=== PATIENT | male | born 1955 | race Caucasian/White ===

== ENCOUNTER 2016-12-03 14:36 | Inpatient (IN) | payer OTHER ==
[2016-12-03] VITALS (8 sets, daily range): BP systolic 140–210; BP diastolic 90–112; PULSE 80–97; RESP 16; TEMP 97.7–98.7; O2SAT 96–99
[~2016-12-03] VITALS: Ht 177.8 cm; Wt 81.0 kg
[~2016-12-03 14:36] MED LIST: CYMB60CA PO; LORTA10 PO; PERC5TAB12 PO; RIVA15 PO; VENL37.5
[2016-12-03] MEDS ORDERED: CYMB30CA PO (14:55)
[2016-12-03] MEDS ORDERED: VENL37.5 PO (14:55)
[2016-12-03] MEDS ORDERED: ASPIRIN 81 MG CHEW TAB PO ONE (15:00)
[2016-12-03] MEDS ORDERED: HEPARIN-D5W 25,000 U/250 ML 250 ML IV PRN (15:00)
[2016-12-03] MEDS ORDERED: ATORVASTATIN 80 MG TAB PO ONE (15:00)
[2016-12-03] MEDS ORDERED: HEPARIN-NS/PF INJ 1,000 ML ONE (15:14)
[2016-12-03 15:21] LABS: I-STAT POTASSIUM 4.4 MMOL/L (3.5-4.9); I-STAT SODIUM 140 MMOL/L (138-146)
[2016-12-03] MEDS ORDERED: IOHEXOL 350 MG/ML 100 ML BTL (for Cath Lab) OTHER ONE (15:21)
--- NOTE | 2016-12-03 15:22 | PD ---
HPI Chief Complaint: Chest Pain Time Seen by Provider: 14:56 Travel History International Travel<30 days: No Contact w/Intl Traveler<30days: No Traveled to known affect area: No History of Present Illness HPI Patient is a 61-year-old male who presents to emergency room with complaints of chest pain. Patient reports that he has only history of alcoholism, reports that he drinks about 2-3 drinks per day, he did have a drink this morning. Patient reports that for the past 3 days, he's been having chest pain. Patient reports that chest pain is located to his sternum, reports that it radiates to his left chest and down both arms. Patient reports that pain feels "pressure" to his chest with associated nausea and vomiting. Patient denies any shortness breath at this time. Reports that chest pain has been ongoing for the past 3 days, reports that has been intermittent in nature and lasts hours at a time. Patient reports that symptoms began a few hours prior to arrival to the emergency room today. Patient denies history of hypertension or hyperlipidemia , denies smoking history. Reports strong drinking history. PFSH Past Medical History Arthritis: No Autoimmune Disease: No Anxiety: Yes Depression: Yes Cancer: No Cardiovascular Problems: No Chemotherapy: Yes Cerebrovascular Accident: No Diabetes: No Diminished Hearing: No Endocrine: No Gastrointestinal Disorders: No Genitourinary: No Immune Disorder: No Musculoskeletal: Yes (CHRONIC BACK PAIN AND NECK PAIN, SHOULDER PAIN ) Neurologic: Yes (EVENT SEIZURES) Psychiatric: Yes Reproductive: No Respiratory: No Migraines: No Seizures: Yes Thyroid Disease: Yes (HYPOTHYROIDISM) Ulcer: Yes Past Surgical History Abdominal Surgery: Yes (HERNIA REPAIR) Appendectomy: Yes Cardiac Surgery: No Ear Surgery: No Endocrine Surgery: No Eye Surgery: No Genitourinary Surgery: No Gynecologic Surgery: No Neurologic Surgery: No Oral Surgery: No Thoracic Surgery: No Tonsillectomy: Yes Other Surgery: Yes (multiple back surgeries) Social History Alcohol Use: Yes (ETOH ABUSE ) Tobacco Use: No Substance Use: No (DENIES) Allergies-Medications (Allergen,Severity, Reaction): Coded Allergies: No Known Allergies (Verified , 12/03/16) Reported Meds & Prescriptions Reported Meds & Active Scripts Active Reported Effexor (Venlafaxine HCl) 37.5 Mg Tab 37.5 Mg PO Q12H Cymbalta DR (Duloxetine HCl) 30 Mg Capdr 30 Mg PO DAILY Review of Systems General / Constitutional: No: Fever Eyes: No: Visual changes HENT: No: Headaches Cardiovascular: Positive: Chest Pain or Discomfort Respiratory: No: Shortness of Breath Gastrointestinal: Positive: Nausea, Vomiting, No: Abdominal Pain Genitourinary: No: Dysuria Musculoskeletal: No: Pain Skin: No Rash Neurologic: No: Weakness Psychiatric: No: Depression Endocrine: No: Polydipsia Hematologic/Lymphatic: No: Easy Bruising Physical Exam Narrative GENERAL: Moderate distress SKIN: Focused skin assessment warm/dry. HEAD: Atraumatic. Normocephalic. EYES: Pupils equal and round. No scleral icterus. No injection or drainage. ENT: No nasal bleeding or discharge. Mucous membranes pink and moist. NECK: Trachea midline. No JVD. CARDIOVASCULAR: Regular rate and rhythm. No murmur appreciated. RESPIRATORY: No accessory muscle use. Clear to auscultation. Breath sounds equal bilaterally. GASTROINTESTINAL: Abdomen soft, non-tender, nondistended. Hepatic and splenic margins not palpable. MUSCULOSKELETAL: No obvious deformities. No clubbing. No cyanosis. No edema. NEUROLOGICAL: Awake and alert. No obvious cranial nerve deficits. Motor grossly within normal limits. Normal speech. Data Data Last Documented VS Vital Signs Date Time Temp Pulse Resp B/P (MAP) Pulse Ox O2 Delivery O2 Flow Rate FiO2 12/03/16 14:39 98.7 84 16 165/93 (117) 98 Orders Orders Electrocardiogram (12/03/16 14:51) Complete Blood Count With Diff (12/03/16 14:51) Prothrombin Time / Inr (Pt) (12/03/16 14:51) Act Partial Throm Time (Ptt) (12/03/16 14:51) Chest, Single Ap (12/03/16 14:51) Ecg Monitoring (12/03/16 14:51) Bilateral Bp Monitoring (12/03/16 14:51) Iv Access Insert/Monitor (12/03/16 14:51) Oximetry (12/03/16 14:51) Oxygen Administration (12/03/16 14:51) Aspirin Chew (Aspirin Chew) (12/03/16 15:00) Atorvastatin (Lipitor) (12/03/16 15:00) Heparin Inj (Heparin Inj) (12/03/16 21:00) Heparin Inj (Heparin Inj) (12/03/16 21:00) Heparin-D5w 25,000 U/250 Ml (Heparin-D5w (12/03/16 15:00) I-Stat Profile (12/03/16 14:59) I-Stat Creatinine (12/03/16 14:59) Heparin-Ns/Pf Inj (Heparin-Ns/Pf Inj) (12/03/16 15:14) Ckmb (Isoenzyme) Profile (12/03/16 14:59) Comprehensive Metabolic Panel (12/03/16 14:59) Lipase (12/03/16 14:59) Troponin I (12/03/16 14:59) Cardiac Catheterization (12/03/16 ) Admit Order (Ed Use Only) (12/03/16 15:23) CKMB (12/03/16 14:56) CKMB% (12/03/16 14:56) Labs Laboratory Tests Test 12/03/16 14:56 White Blood Count 11.3 TH/MM3 Red Blood Count 4.87 MIL/MM3 Hemoglobin 16.6 GM/DL Bedside Hemoglobin 17.7 G/DL Hematocrit 49.3 % Bedside Hematocrit 52.0 % Mean Corpuscular Volume 101.4 FL Mean Corpuscular Hemoglobin 34.1 PG Mean Corpuscular Hemoglobin Concent 33.7 % Red Cell Distribution Width 14.3 % Platelet Count 217 TH/MM3 Mean Platelet Volume 7.6 FL Neutrophils (%) (Auto) 88.9 % Lymphocytes (%) (Auto) 4.5 % Monocytes (%) (Auto) 5.8 % Eosinophils (%) (Auto) 0.3 % Basophils (%) (Auto) 0.5 % Neutrophils # (Auto) 10.0 TH/MM3 Lymphocytes # (Auto) 0.5 TH/MM3 Monocytes # (Auto) 0.7 TH/MM3 Eosinophils # (Auto) 0.0 TH/MM3 Basophils # (Auto) 0.1 TH/MM3 CBC Comment AUTO DIFF Prothrombin Time 11.3 SEC Prothromb Time International Ratio 1.0 RATIO Activated Partial Thromboplast Time 24.7 SEC Bedside Sodium 140 MMOL/L Blood Urea Nitrogen 9 MG/DL Creatinine 1.10 MG/DL Random Glucose 136 MG/DL Total Protein 8.9 GM/DL Albumin 4.3 GM/DL Calcium Level 9.0 MG/DL Alkaline Phosphatase 76 U/L Aspartate Amino Transf (AST/SGOT) 104 U/L Alanine Aminotransferase (ALT/SGPT) 41 U/L Total Bilirubin 0.6 MG/DL Sodium Level 136 MEQ/L Potassium Level 4.2 MEQ/L Chloride Level 100 MEQ/L Carbon Dioxide Level 20.2 MEQ/L Bedside Potassium 4.4 MMOL/L Bedside Chloride 99 MMOL/L Anion Gap 16 MEQ/L Bedside Blood Urea Nitrogen 7 MG/DL Bedside Creatinine 1.1 MG/DL Estimat Glomerular Filtration Rate 68 ML/MIN Bedside Glucose 148 MG/DL Total Creatine Kinase 524 U/L Creatine Kinase MB 45.8 NG/ML Creatine Kinase MB % 8.7 % Troponin I 11.40 NG/ML Lipase 165 U/L MDM Medical Decision Making Medical Screen Exam Complete: Yes Emergency Medical Condition: Yes Interpretation(s) EKG at 1445 NSR at 84bpm, qt/qtc: 365/407, ST seg elevation II, III, aVF (Ekg compared to previous ekg which there are significant changes) Vital Signs Date Time Temp Pulse Resp B/P (MAP) Pulse Ox O2 Delivery O2 Flow Rate FiO2 12/03/16 14:39 98.7 84 16 165/93 (117) 98 Differential Diagnosis Differential includes STEMI Narrative Course Patient is a 61-year-old male who presents to emergency room with complaints of chest pain. Patient was placed on a telecommunications network planner upon arrival to emergency room. EKG showed inferior leads and ST segment elevations concerning for an Acute [facility]. Patient reports that he has persistent chest pain at this time. STEMI alert called overhead. istat Labs ordered. CR 1.1. Case reviewed with Dr. Connolly - accepts pt to concrete laborer once ready. I did order aspirin, Lipitor as well as heparin bolus and drip. After patient was stabilized, patient was brought to the [facility]. Diagnosis Primary Impression: STEMI (ST elevation myocardial infarction) Qualified Codes: I21.3 - ST elevation (STEMI) myocardial infarction of unspecified site Additional Impression: Alcoholism Admitting Information Admitting Physician Requests: Admit Yanni Franco DO Dec 03, 2016 15:22
--- NOTE | 2016-12-03 15:25 | RADRPT ---
EXAM DATE/TIME: 12/03/2016 15:05 [facility] COMPARISON: CHEST SINGLE AP, September 02, 2014, 18:13. INDICATIONS : Stemi alert. MEDICAL HISTORY : None. SURGICAL HISTORY : None. ENCOUNTER: Initial ACUITY: 1 day PAIN SCORE: 9/10 LOCATION: Bilateral chest FINDINGS: The lungs are clear. The heart is minimally enlarged. The pulmonary vascularity is normal. There is n o evidence for infiltrate or failure. The portion of the bony skeleton visualized is unremarkable. CONCLUSION: Compensated cardiomegaly otherwise negative Jacques Mack MD FACR on December 03, 2016 at 15:23 Board Certified Radiologist. This report was verified electronically.
[2016-12-03] MEDS ORDERED: NITROGLYCERIN 400 MCG/SPRAY 4.9 GM BOTTLE SL ONE (15:27)
[2016-12-03 15:29] LABS: BASOPHIL # 0.1 TH/MM3 (0-0.2); BASOPHIL % 0.5 % (0.0-2.0); EOSINOPHIL % 0.3 % (0.0-4.0); HEMATOCRIT 49.3 % (39.0-51.0); LYMPH % 4.5 % (9.0-44.0); LYMPHOCYTE # 0.5 TH/MM3 (1.0-4.8); MEAN CELL VOLUME 101.4 FL (80.0-100.0); MEAN CORPUSCULAR HEMOGLOBIN 34.1 PG (27.0-34.0); MEAN CORPUSCULAR HGB CONC 33.7 % (32.0-36.0); MONO % 5.8 % (0.0-8.0); NEUT % 88.9 % (16.0-70.0); PLATELET COUNT 217 TH/MM3 (150-450); RED BLOOD COUNT 4.87 MIL/MM3 (4.50-5.90); RED CELL DISTRIBUTION WIDTH 14.3 % (11.6-17.2); WHITE BLOOD COUNT 11.3 TH/MM3 (4.0-11.0)
[2016-12-03 15:30] LABS: HEMO FLAGS AUTO DIFF
[2016-12-03 15:31] LABS: APTT (PATIENT) 24.7 SEC (24.3-30.1); PROTHROMBIN TIME - PATIENT 11.3 SEC (9.8-11.6)
[2016-12-03 15:37] LABS: ALT (GPT) 41 U/L (12-78); ANION GAP 16 MEQ/L (5-15); AST (GOT) 104 U/L (15-37); BICARBONATE 20.2 MEQ/L (21.0-32.0); BLOOD UREA NITROGEN 9 MG/DL (7-18); CHLORIDE 100 MEQ/L (98-107); GLOMERULAR FILTRATION RATE 68 ML/MIN (>89); POTASSIUM 4.2 MEQ/L (3.5-5.1); SODIUM (NA) 136 MEQ/L (136-145)
[2016-12-03 15:41] LABS: ALKALINE PHOSPHATASE 76 U/L (45-117); CREATINE KINASE 524 U/L (39-308); TOTAL BILIRUBIN ADULT 0.6 MG/DL (0.2-1.0)
[2016-12-03] MEDS ORDERED: TIROFIBAN INFUSION INJ 250 ML IV ONE (15:41)
[2016-12-03] MEDS ORDERED: SODIUM NITROPRUSSIDE 50 MG/2 ML VIAL ONE (15:47)
[2016-12-03] MEDS ORDERED: ONDANSETRON HCL 4 MG/2 ML VIAL ONE (15:49)
[2016-12-03 16:03] LABS: CKMB 45.8 NG/ML (0.5-3.6)
[2016-12-03] MEDS ORDERED: PRASUGREL 10 MG TAB ONE (17:04)
[2016-12-03] MEDS ORDERED: TIROFIBAN INFUSION INJ 250 ML IV SCH (17:17)
[2016-12-03] MEDS ORDERED: MISC INFORMATION XX ONE (17:30)
[2016-12-03] MEDS ORDERED: SODIUM CHLORIDE 0.9% FLUSH 10 ML FLUSH PRN (17:30)
[2016-12-03] MEDS ORDERED: PRASUGREL 10 MG TAB PO ONE (17:30)
[2016-12-03 17:36] LABS: PLATELET ESTIMATE SMEAR NORMAL (NORMAL); PLATELET MORPHOLOGY NORMAL (NORMAL); SCAN/DIFF AUTO DIFF CONFIRMED
--- NOTE | 2016-12-03 17:36 | CATHPROC ---
[email or web address] HIS Report Study Information Study Number Admission Scheduled Start Study Start [id number] Dec 03 2016 2:36PM 12/03/2016 Dec 03 2016 3:21PM [place] Service Cardiac Catheterization Admit Source Facility Department Emergency department [facility] - [facility] Operator Physician and Clinical Staff Initial Paul Mckeon Treating Plant Supervisor Yisel Chua RN Treating Plant Supervisor Azra Chiu RN Recorder John Chan RCIS(BS) Scrub Timoteo Navarro,RT(R) Procedures Performed Procedure Location (Site) Vessel Name Coronary Angiograms LCA Left Coronary LV Gram-hand inj. LV LV Ventricle PTCA RCA Dist Right Coronary Stent RCA Dist Right Coronary Wire insertion Fem Art (right) Femoral Art Equipment Time Cash Van Salesperson Description Size Mfg Part Number Used/Scraped [id number] 15:51 [employer] WIRE, ASAHI PROWATER 180CM 180CM Used *[id number] 15:59 [employer] WIRE, ASAHI PROWATER 180CM 180CM Used *[id number] 46991-27 16:31 [employer] WIRE, ASAHI PROWATER 180CM 180CM Used *[id number] TRANSDUCER, TRUWAVE [id number] 15:48 MCGUIRE MCCONNELL * Used W/STOCKCOCK *[id number] BALLOON, 1.2 12MM EMERGE 16:34 [employer]OSTON SCIENTIFIC 1.2 12MM [id number] Used PUSH MR BALLOON, 1.2 8MM EMERGE PUSH 16:26 [employer] 1.2 8MM [id number] [place] [id number] 16:19 [employer] BALLOON, 1.5 8MM EMERGE MR 1.5 8MM Used *[id number] 16:50 [employer] BALLOON, 3.0 12MM EMERGE MR 3.0 12MM Used *[id number] *[id number] [id number] *[id number] [phone] *[id number] [id number] *[id number] 15:48 MEDLINE INDUSTRIES PACK, CCL CUSTOM * Used *[id number] 15:48 MEDLINE PACER PEN, SKIN DUAL W/ RULER * Used *[id number] 16:38 MEDTRONIC BALLOON, 1.5 X 12MM EUPHORA 12MM Used *[id number] 16:04 MEDTR[employer]IC BALLOON, 2.75 X 6MM EUPHORA 6MM Used *5885916 [id number] 15:55 [employer]IC BALLOON, 3.5 X 12MM EUPHORA 12MM Used *[id number] 16:31 MEDTRONIC CATHETER, EXPORT ASPIRATON Used *[id number] [id number] 15:52 MEDTRONIC STENT, 4.0 12 INTEGRITY 4.0 12 Used *[id number] 16:59 MEDTRONIC STENT, 4.0 9 INTEGRITY 4.0 9 [id number] Used [id number] 15:51 [employer] Inc MEDICAL 30 OXANA INDEFLATOR Used *[id number] 15:48 Affle SHEATH, FR6.5 PRELUDE 11CM FR 6.5 038ACT Used *1054217 [id number] 15:48 Affle WIRE, 3MMJ .035 180CM 180CM Used *[id number] 15:48 NAMIC MANIFOLD, 4 PORT * Used *[id number] 15:48 NYCOMED OMNIPAQUE, 350 MG, 150ML 150ML [id number] Used [id number] 15:48 [employer],WARM AIR CCL * Used *[id number] Equipment Model, Serial, Lot Number and Expiration Data Description Model Number Serial Number Lot Number Expiration Date STENT, 4.0 12 INTEGRITY [id number] 09-28-2017 STENT, 4.0 9 INTEGRITY [id number] 05-15-2018 History: Allergies Allergy Reaction No Known Allergies History: Risk Factors Family History of Hypertension Dyslipidemia Previous [place] Previous Heart Failure Premature CAD No No No No No Prior Valve Prior PCI Prior CABG Surgery No No No Cerebrovascular Peripheral Artery Chronic Lung On Dialysis Diabetes Disease Disease Disease No No No No No History: Symptoms/Diagnosis Selection Items Angina-unstable History: Stress Tests Stress or Imaging Studies Performed No History: Other Disease Selection Items HTN History: Other Current Smoker No Labs Hgb (g/dl) Hct (%) 11.60-17.00 35.00-51.00 17.7 52 Glucose (mg/dl) BUN (mg/dl) Creatinine (mg/dl) BUN:Creatinine (1:x) 74.00-106.00 7.00-18.00 0.50-1.30 10.00-20.00 148 7 1.1 6.4 Na (meq/l) K (meq/l) 136.00-145.00 3.50-5.10 140 4.4 Troponin I (ng/ml) CPK-MB (ng/ML) 0.02-0.05 0.50-3.60 11.4 8.7 Medication Medication Total Dose (Bolus/Oral) Medication Total Dosage/Unit 1% XYLOCAINE 20 mL AGGRASTAT BOLUS 41 mL EFFIENT 60 mg FENTANYL 50 mcg HEPARIN 8300 units ZOFRAN 4 mg Medications (Bolus/Oral) Medication Time Given Dosage/Unit Administered By Reason 1% XYLOCAINE 12/03/2016 3:46:55 PM 20 mL Aram Azra 20 mL 1% XYLOCAINE given in lab by Azra Chiu RN via Subcutaneous. Ordered by Paul Connolly . FENTANYL 12/03/2016 3:47:00 PM 12.5 mcg Sabrina Chiuaret 12.5 mcg FENTANYL given in lab by Azra Chiu RN in Left Wrist via Peripheral IV. Ordered by Paul Barreto. HEPARIN 12/03/2016 3:50:00 PM 5800 units Valeria Chiut 5800 units HEPARIN given in lab by Azra Chiu RN in Left Wrist via Peripheral IV. Ordered by Paul Jimenez. ZOFRAN 12/03/2016 3:50:42 PM 4 mg Azra Chiu 4 mg ZOFRAN given in lab by Azra Chiu RN in Left Wrist via Peripheral IV. Ordered by Paul Connolly. FENTANYL 12/03/2016 3:57:00 PM 12.5 mcg Sabrina Chiuaret 12.5 mcg FENTANYL given in lab by Azra Chiu RN in Left Wrist via Peripheral IV. Ordered by Paul Barreto. HEPARIN 12/03/2016 5:00:19 PM 2500 units Valeria Chiut 2500 units HEPARIN given in lab by Azra Chiu RN in Left Wrist via Peripheral IV. Ordered by Paul Jimenez. AGGRASTAT BOLUS 12/03/2016 5:06:00 PM 41 mL Valeria Chiut 41 mL AGGRASTAT BOLUS given in lab by Azra Chiu RN in Left Wrist via Peripheral IV. Ordered b Paul Amaya. EFFIENT 12/03/2016 5:08:00 PM 60 mg Bensonche, Azra 60 mg EFFIENT given in lab by Azra Chiu, JAME via Oral. Ordered by Paul Connolly. FENTANYL 12/03/2016 5:08:00 PM 25 mcg Azra Chiu 25 mcg FENTANYL given in lab by Azra Chiu, JAME in Left Wrist via Peripheral IV. Ordered by Paul Huffman. Medication (Drip) Medication Time Given Dosage/Unit Concentration/Unit Diluent (ml) Solutio n AGGRASTAT DRIP 12/03/2016 5:06:00 PM 0.15 mcg/kg/min 12.5 mg 250 NaCl .9 0.15 mcg/kg/min AGGRASTAT DRIP given in lab by Azra Chiu RN via Peripheral IV. Pump/Drip Flow = 14.76 ml/hr using NaCl .9 with a concentration of 12.5 mg in 250 ml. Ordered by Paul Connolly. IV Solutions 12/03/2016 3:21:31 PM 0 mL (IV) 500 NaCl .9 Patient arrived on IV Solutions in Left Wrist via Peripheral IV. Pump/Drip Flow = 20 ml/hr using NaCl .9. NIPRIDE 12/03/2016 5:04:19 PM 20 mcg/kg/min 50 mg 250 D5W 20 mcg/kg/min NIPRIDE given in lab by Azra Chiu, JAME via Intra-coronary. Pump/Drip Flow = 492 m l/hr using D5W with a concentration of 50 mg in 250 ml. Ordered by Paul Connolly. Initial Case Assessment Cardiovascular HR Rhythm NIBP Chest Pain 84 STEMI 175/117 5 Edema Present Skin color Skin None Normal Warm Dry Circulatory - Right Pulses Dorsalis Pedis Femoral 2 2 Scale (0,1,2,3,4,d) Circulatory - Left Pulses Dorsalis Pedis Femoral 2 2 Scale (0,1,2,3,4,d) Circulatory - Lower Extremities Color Lower Right Color Lower Left Normal Normal Neurological State Oriented to time-place- Alert Moves all extremities person Respiration - General Respiration Rate SpO2 (%) O2 (lpm) (B/min) 11 99 2 Final Case Assessment Cardiovascular HR Rhythm NIBP Chest Pain 84 STEMI 175/117 5 Edema Present Skin color Skin None Normal Warm Dry Circulatory - Right Pulses Dorsalis Pedis Femoral 2 2 Scale (0,1,2,3,4,d) Circulatory - Left Pulses Dorsalis Pedis Femoral 2 2 Scale (0,1,2,3,4,d) Circulatory - Lower Extremities Color Lower Right Color Lower Left Normal Normal Neurological State Oriented to time-place- Alert Moves all extremities person Respiration - General Respiration Rate SpO2 (%) O2 (lpm) (B/min) 11 99 2 Chronological Log Time Study Chronological Log 15:21:15 Patient arrived via Bed. 15:21:15 Patient Name, D.O.B, / Armband Verified By R.N. 15:21:16 Consent signed by the physician and the patient and verified by the Circle Cutting Saw Operator staff. 15:21:17 Pre-op and post- op instructions given; patient acknowledges understanding of instructions. 15:21:19 Verbal Stimulation=2 Physical Stimulation=2 Airway=2 Respiration=2 TOTAL=8. (0=absent, 1=li mited, 2=present) 15:21:20 Presedation assessment performed by Circle Cutting Saw Operator RN. 15:21:23 Patient has been NPO for Less than 6Hrs. 15:21:23 Skin Breakdown- 15:21:26 Patient Warmer Placed on the Table. 15:21:27 Ridge Prominences Protected 15:21:30 A # 20 IV was noted in the Wrist (left). Grade = 0 15:21:31 Patient arrived on IV Solutions in Left Wrist via Peripheral IV. Pump/Drip Flow = 20 ml/hr using NaCl .9. 15:21:32 History and physical on the chart or being dictated. Assessment: Initial Case, HR=84 BPM, Rhythm=STEMI, WEHJ=543/117 mmhg, Chest Pain=5, Edema=None, Color=Normal, Skin = Warm, Dry Right Pulses: Kilo Ped=2, Femoral=2 Left Pulses: Kilo Ped=2, Femoral=2 15:21:33 Lower Right Extremities: Color=Normal Lower Left Extremities: Color=Normal Neurological: State=Alert, Ox3, LAL Respiration: Resp=11 B/min, SpO2=99 %, O2=2 lpm Vitals capture started with the following parameters, Patient=Adult, Interval=5 min, Initial Pr dkefqv=147 mmHg, 15:21:37 Deflation Rate=5 mmHg, Cuff placed on Left Arm 15:22:47 HR=87 bpm, AFBI=838/119 mmhg, SpO2=97.0 %, Resp=8 B/min, Pain=2, Rosa=10, Villaseñor=2 15:27:21 HR=83 bpm, TQOV=921/106 mmhg, SpO2=99.0 %, Resp=10 B/min, Pain=2, Rosa=10, Villaseñor=2 15:31:55 Reference ECG taken 15:32:20 HR=85 bpm, HNAU=795/117 mmhg, SpO2=99.0 %, Resp=15 B/min, Pain=2, Rosa=10, Villaseñor=2 15:35:00 MD arrived. 15:37:19 HR=84 bpm, CXZJ=457/96 mmhg, SpO2=99.0 %, Resp=9 B/min, Pain=2, Rosa=10, Villaseñor=2 15:37:36 Pressure channel 1 zeroed. 15:38:54 Right groin prepped with 2% chlorhexidine, and with a 3 min. waiting time. 15:42:18 HR=82 bpm, VHOZ=910/101 mmhg, SpO2=99.0 %, Resp=10 B/min, Pain=2, Rosa=10, Villaseñor=2 Time Out. Correct patient, correct procedure,correct physician, ,power injector not loaded with contrast with surgical 15:44:49 team present. Time Out Concurred by MD, individual staff in procedure 15:46:10 Case Start 15:46:55 20 mL 1% XYLOCAINE given in lab by Azra Chiu, JAME via Subcutaneous. Ordered by Paul Lynn. 15:46:55 Access site was Right Femoral Artery. 15:46:58 A SHEATH, FR6.5 PRELUDE 11CM FR 6.5 was advanced into the Fem Art (right) using the Percuta neous technique. 15:47:00 12.5 mcg FENTANYL given in lab by Azra Chiu, JAME in Left Wrist via Peripheral IV. Ord ered by Paul Connolly. 15:47:15 HR=83 bpm, RGMT=245/99 mmhg, SpO2=98.0 %, Resp=20 B/min, Pain=2, Rosa=10, Villaseñor=2 Recorded Pressure: Ao, HR=82, Condition=Condition 1 15:48:05 (Aorta) Ao 124/84/103 A JL 4.0 INFINITI CATHETER FR 4 was advanced over a wire. OMNIPAQUE, 350 MG, 150ML 150ML was us ed for 15:48:13 injections. 15:48:18 The LCA was injected and visualized at various angles. OMNIPAQUE, 350 MG, 150ML 150ML used . 15:50:00 5800 units HEPARIN given in lab by Azra Chiu RN in Left Wrist via Peripheral IV. Or dered by Paul Connolly. 15:50:00 Catheter was removed A JR 4.0 GUIDE CATHETER FR 6 was advanced over a wire. OMNIPAQUE, 350 MG, 150ML 150ML was used for 15:50:01 injections. 15:50:42 4 mg ZOFRAN given in lab by Azra Chiu RN in Left Wrist via Peripheral IV. Ordered b y Paul Connolly. 15:52:16 HR=83 bpm, TBVI=363/97 mmhg, SpO2=98.0 %, Resp=15 B/min, Pain=2, Rosa=10, Villaseñor=2 15:53:06 A WIRE, ASAHI PROWATER 180CM 180CM was inserted via Fem Art (right). An STENT, 4.0 12 INTEGRITY 4.0 12 Bare Metal Stent was inserted through a JR 4.0 GUIDE CATHETER FR 6 over a 15:54:02 WIRE, ASAHI PROWATER 180CM 180CM. 15:56:58 Stent not deployed. Stent removed and intact. 15:57:00 12.5 mcg FENTANYL given in lab by Azra Chiu RN in Left Wrist via Peripheral IV. Ord ered by Paul Connolly. 15:57:08 Activated Clotting Time Drawn 15:57:15 HR=87 bpm, KMXK=383/98 mmhg, SpO2=97.0 %, Resp=11 B/min, Pain=2, Rosa=10, Villaseñor=2 A BALLOON, 3.5 X 12MM EUPHORA 12MM was inserted over WIRE, ASAHI PROWATER 180CM 180CM via the F em Art 15:58:00 (right). 15:58:25 Balloon Removed. A BALLOON, 3.5 X 12MM EUPHORA 12MM was inserted over WIRE, ASAHI PROWATER 180CM 180CM via the F em Art 15:59:52 (right). 16:01:32 ACT (Normal Range 90-180) = 261 16:02:18 HR=79 bpm, SJVG=227/103 mmhg, SpO2=99.0 %, Resp=11 B/min, Pain=2, Rosa=10, Villaseñor=2 16:04:42 Balloon Removed. A BALLOON, 2.75 X 6MM EUPHORA 6MM was inserted over WIRE, ASAHI PROWATER 180CM 180CM via the Fe m Art 16:05:27 (right). 16:07:17 HR=74 bpm, CWFA=869/95 mmhg, SpO2=99.0 %, Resp=13 B/min, Pain=2, Rosa=10, Villaseñor=2 16:07:40 Interventional wire has crossed the lesion 16:09:32 Balloon Removed. 16:09:39 A balloons was inserted over WIRE, ASAHI PROWATER 180CM 180CM via the Fem Art (right). 16:12:19 HR=77 bpm, LMMM=805/104 mmhg, SpO2=98.0 %, Resp=17 B/min, Pain=2, Rosa=10, Villaseñor=2 16:15:08 Balloon Removed. 16:15:11 Wire removed 16:15:21 Catheter was removed 16:15:26 A AR 1 GUIDE CATHETER FR 6 was advanced over a wire. OMNIPAQUE, 350 MG, 150ML 150ML was use d for injections. 16:17:22 HR=77 bpm, UHTX=529/100 mmhg, SpO2=98.0 %, Resp=11 B/min, Pain=2, Rosa=10, Villaseñor=2 16:19:23 A WIRE, ASAHI PROWATER 180CM 180CM was inserted via Fem Art (right). A BALLOON, 1.5 8MM EMERGE MR 1.5 8MM was inserted over WIRE, ASAHI PROWATER 180CM 180CM via the Fem Art 16:19:31 (right). 16:20:39 Reference ECG taken 16:22:25 HR=79 bpm, NVMQ=565/109 mmhg, SpO2=99.0 %, Resp=13 B/min, Pain=2, Rosa=10, Villaseñor=2 16:25:22 Balloon Removed. A BALLOON, 1.2 8MM EMERGE PUSH MR 1.2 8MM was inserted over WIRE, ASAHI PROWATER 180CM 180CM vi a the 16:26:02 Fem Art (right). 16:27:24 HR=80 bpm, YBKB=007/113 mmhg, SpO2=98.0 %, Resp=11 B/min, Pain=2, Rosa=10, Villaseñor=2 16:29:02 A balloons over a wire in the RCA Dist was inflated using a 30 OXANA INDEFLATOR at 20 oxana for 19 sec. A BALLOON, 1.2 8MM EMERGE PUSH MR 1.2 8MM over a WIRE, ASAHI PROWATER 180CM 180CM in the RCA Di st was 16:29:32 inflated using a 30 OXANA INDEFLATOR at 20 oxana for 19 sec. 16:31:02 Balloon Removed. 16:32:25 HR=85 bpm, LDFT=485/105 mmhg, SpO2=99.0 %, Resp=12 B/min, Pain=2, Rosa=10, Villaseñor=2 16:32:43 A WIRE, ASAHI PROWATER 180CM 180CM was inserted via Fem Art (right). A BALLOON, 1.2 12MM EMERGE PUSH MR 1.2 12MM was inserted over WIRE, ASAHI PROWATER 180CM 180CM via the 16:33:35 Fem Art (right). A BALLOON, 1.2 12MM EMERGE PUSH MR 1.2 12MM over a WIRE, ASAHI PROWATER 180CM 180CM in the RCA Dist 16:34:07 was inflated using a 30 OXANA INDEFLATOR at 20 oxana for 19 sec. 16:37:24 HR=91 bpm, YOMW=286/116 mmhg, SpO2=99.0 %, Resp=16 B/min, Pain=2, Rosa=10, Villaseñor=2 A BALLOON, 1.2 12MM EMERGE PUSH MR 1.2 12MM over a WIRE, ASAHI PROWATER 180CM 180CM in the RCA Dist 16:38:44 was inflated using a 30 OXANA INDEFLATOR at 20 oxana for 14 sec. A BALLOON, 1.2 12MM EMERGE PUSH MR 1.2 12MM over a WIRE, ASAHI PROWATER 180CM 180CM in the RCA Dist 16:39:21 was inflated using a 30 OXANA INDEFLATOR at 20 oxana for 17 sec. 16:41:53 Balloon Removed. A BALLOON, 1.5 X 12MM EUPHORA 12MM was inserted over WIRE, ASAHI PROWATER 180CM 180CM via the F em Art 16:41:58 (right). 16:42:23 HR=82 bpm, FQIF=671/108 mmhg, SpO2=98.0 %, Resp=13 B/min, Pain=2, Rosa=10, Villaseñor=2 A BALLOON, 1.5 X 12MM EUPHORA 12MM over a WIRE, ASAHI PROWATER 180CM 180CM in the RCA Dist was inflated 16:42:29 using a 30 OXANA INDEFLATOR at 20 oxana for 15 sec. 16:43:38 Balloon Removed. A BALLOON, 2.75 X 6MM EUPHORA 6MM was inserted over WIRE, ASAHI PROWATER 180CM 180CM via the Fe m Art 16:44:08 (right). A BALLOON, 2.75 X 6MM EUPHORA 6MM over a WIRE, ASAHI PROWATER 180CM 180CM in the RCA Dist was i nflated 16:44:47 using a 30 OXANA INDEFLATOR at 12 oxana for 18 sec. 16:46:28 Balloon Removed. 16:47:24 HR=91 bpm, DXCN=282/106 mmhg, SpO2=98.0 %, Resp=11 B/min, Pain=2, Rosa=10, Vilalseñor=2 An STENT, 4.0 12 INTEGRITY 4.0 12 Bare Metal Stent was inserted through a AR 1 GUIDE CATHETER F R 6 over a 16:47:51 WIRE, ASAHI PROWATER 180CM 180CM. 16:49:43 Stent not deployed. Stent removed and intact. A BALLOON, 3.0 12MM EMERGE MR 3.0 12MM was inserted over WIRE, ASAHI PROWATER 180CM 180CM via t he Fem 16:51:06 Art (right). A BALLOON, 3.0 12MM EMERGE MR 3.0 12MM over a WIRE, ASAHI PROWATER 180CM 180CM in the RCA Dist was 16:51:39 inflated using a 30 OXANA INDEFLATOR at 14 oxana for 12 sec. A BALLOON, 3.0 12MM EMERGE MR 3.0 12MM over a WIRE, ASAHI PROWATER 180CM 180CM in the RCA Dist was 16:52:10 inflated using a 30 OXANA INDEFLATOR at 10 oxana for 7 sec. 16:52:27 HR=93 bpm, ZIGU=520/107 mmhg, SpO2=98.0 %, Resp=12 B/min, Pain=2, Rosa=10, Villaseñor=2 16:53:10 Balloon Removed. An STENT, 4.0 12 INTEGRITY 4.0 12 Bare Metal Stent was inserted through a AR 1 GUIDE CATHETER F R 6 over a 16:53:33 WIRE, ASAHI PROWATER 180CM 180CM. A STENT, 4.0 12 INTEGRITY 4.0 12 was deployed using a 30 OXANA INDEFLATOR at 14 atmospheres for 1 5 seconds in 16:56:46 the RCA Dist. 16:57:28 HR=98 bpm, QFXZ=279/112 mmhg, SpO2=98.0 %, Resp=13 B/min, Pain=2, Rosa=10, Villaseñor=2 17:00:13 Delivery device removed 17:00:19 2500 units HEPARIN given in lab by Azra Chiu RN in Left Wrist via Peripheral IV. Or dered by Paul Connolly. An STENT, 4.0 12 INTEGRITY 4.0 12 Bare Metal Stent was inserted through a AR 1 GUIDE CATHETER F R 6 over a 17:00:30 WIRE, ASAHI PROWATER 180CM 180CM. A STENT, 4.0 12 INTEGRITY 4.0 12 was deployed using a 30 OXANA INDEFLATOR at 9 atmospheres for 11 seconds in the 17:00:35 RCA Dist. 17:03:08 HR=95 bpm, FKDF=890/113 mmhg, SpO2=98.0 %, Resp=12 B/min, Pain=2, Rosa=10, Villaseñor=2 20 mcg/kg/min NIPRIDE given in lab by Azra Chiu RN via Intra-coronary. Pump/Drip Flow = 492 ml/hr using 17:04:19 D5W with a concentration of 50 mg in 250 ml. Ordered by Paul Connolly. 17:05:57 Delivery device removed 41 mL AGGRASTAT BOLUS given in lab by Azra Chiu RN in Left Wrist via Peripheral IV. Ord ered by Cathleen, 17:06:00 Paul. 0.15 mcg/kg/min AGGRASTAT DRIP given in lab by Azra Chiu RN via Peripheral IV. Pump/Dri p Flow = 14.76 17:06:00 ml/hr using NaCl .9 with a concentration of 12.5 mg in 250 ml. Ordered by Paul Connolly. 17:06:42 Wire removed 17:06:47 Catheter was removed A JR 4.0 INFINITI CATHETER FR 4 was advanced over a wire. OMNIPAQUE, 350 MG, 150ML 150ML was us ed for 17:06:50 injections. 17:07:22 PH=429 bpm, PSGF=012/111 mmhg, SpO2=98.0 %, Resp=11 B/min, Pain=2, Rosa=10, Villaseñor=2 Recorded Pressure: LV, AH=705, Condition=Condition 1 17:07:25 (Left Ventricle) LV 158/6/11 17:07:37 The LV was manually injected with 8 cc's and visualized. OMNIPAQUE, 350 MG, 150ML 150ML use d. Recorded Pressure: LV, Ao, RT=857, Condition=Condition 1 17:07:42 (Left Ventricle) LV 156/8/9, (Aorta) Ao 171/70/114 17:08:00 60 mg EFFIENT given in lab by Azra Chiu, JAME via Oral. Ordered by Paul Connolly. 17:08:00 25 mcg FENTANYL given in lab by Azra Chiu, JAME in Left Wrist via Peripheral IV. Order ed by Paul Connolly. 17:08:27 Catheter was removed 17:12:25 NJ=115 bpm, OWJI=030/96 mmhg, Resp=11 B/min, Pain=2, Rosa=10, Villaseñor=2 17:14:55 Case End 17:15:09 Activated Clotting Time Drawn 17:17:22 MWKS=109/108 mmhg, SpO2=98.0 %, Pain=2, Rosa=10, Villaseñor=2 17:19:39 ACT (Normal Range 90-180) = 256 17:20:18 In the Fem Art (right) the SHEATH, FR6.5 PRELUDE 11CM FR 6.[address] by Margarita solo, Timoteo RT(R). 17:20:25 Sterile dressing applied to site 17:20:26 No case complications noted. 17:20:29 Cine recording checked. 17:20:35 Bedside Report will be given. Assessment: Final Case, HR=84 BPM, Rhythm=STEMI, HLHC=477/117 mmhg, Chest Pain=5, Edema=None, Color=Normal, Skin = Warm, Dry Right Pulses: Kilo Ped=2, Femoral=2 Left Pulses: Kilo Ped=2, Femoral=2 17:31:06 Lower Right Extremities: Color=Normal Lower Left Extremities: Color=Normal Neurological: State=Alert, Ox3, LAL Respiration: Resp=11 B/min, SpO2=99 %, O2=2 lpm 17:31:37 Implantable Device card placed in patient's chart. 17:31:41 Contrast Scanned 17:31:43 Patient moved to stretcher End Study - Contrast Media Used In Study Contrast Total Opened (mL) Total Used (mL) Total Wasted (mL) Omnipaque 300 300 0 End Study - Maximum Contrast Load Max Contrast Load (mL) 372.7 End Study - Radiation Exposure Fluoro Time (minutes) 44.3 End Study - Patient Disposition Complications Transferred To Interventional Outcome No Telemetry Bed successful
[2016-12-03] MEDS ORDERED: NITROGLYCERIN/DEXTROSE 5% 250 ML for chest pain IV PRN (19:00)
[2016-12-03] MEDS: ONDANSETRON HCL 4 MG/2 ML VIAL IV PUSH PRN (19:05)
[2016-12-03] MEDS ORDERED: HEPARIN SODIUM - IV 10,000 UNITS/10 ML VIAL IV PRN ×2 (21:00)
[2016-12-03] MEDS: SODIUM CHLORIDE 0.9% FLUSH 10 ML FLUSH SCH (21:00)
[2016-12-03] MEDS: ATORVASTATIN 10 MG TAB PO SCH (21:21)
[2016-12-03] MEDS: CARVEDILOL 3.125 MG TAB PO SCH (21:21)
--- NOTE | 2016-12-03 22:20 | MB ---
cc: KATHIE HONEYCUTT M.D. DATE OF CONSULTATION 12/03/16 HISTORY OF PRESENT ILLNESS Charli is a very pleasant 61-year-old gentleman with history of alcoholism, drinks 2 to 3 drinks a day that he admits to, who reports chest pain for 3 days prior to admission, described as substernal, radiating to the left chest, down bilateral upper extremities described as pressure-like associated with nausea and vomiting. He denies any dyspnea, GI or bleeding, PND, orthopnea, syncope or dizziness. PAST MEDICAL HISTORY Significant for anxiety, depression, history of chemotherapy, chronic back pain, neck pain, shoulder pain, history of seizures, hypothyroidism, hernia repair, appendectomy, multiple back surgeries. SOCIAL HISTORY Heavy alcohol user. Denies tobacco use. ALLERGIES None. MEDICATIONS Prior to admission: 1. Effexor. 2. Cymbalta. In the hospital: 1. He was given aspirin in the ER. PHYSICAL EXAMINATION VITAL SIGNS: Blood pressure 210/106, pulse 81, respiratory rate 16, sats 96% on room air. GENERAL: He is alert and oriented times three, in severe distress. NECK: Supple. No JVD, no bruit. CARDIOVASCULAR: S1-S2. No murmurs, rubs or gallops. LUNGS: Clear to auscultation bilaterally. ABDOMEN: Soft, nontender, nondistended, positive bowel sounds. EXTREMITIES: No lower extremity edema. LABORATORY DATA White count 11.3, hemoglobin 17.7, hematocrit 49.3, platelet count 217. Sodium 140, potassium 4.4, chloride 100, BUN 9, creatinine 1.10, AST 104, ALT 41, CK 524, CK-MB percent is 8.70. Troponin is 11.40, INR is 1.0. CARDIOLOGY STUDIES EKG shows Q-waves in lead II, III, aVF with 1-[address]-segment elevation lead II, III, aVF. ST depression V1-V2 consistent with reciprocal changes. IMAGING STUDIES Chest x-ray shows compensated cardiomegaly, otherwise, negative. DIAGNOSIS 1. STEMI. 2. Alcohol abuse. 3. Cardiomegaly. 4. Polycythemia. 5. Elevated liver function tests. 6. Hyperglycemia. 7. Elevated white count. DISCUSSION The patient has a subacute presentation for a STEMI as he is three days into a history of chest pain with Q-waves already present on the EKG. However, he is having 10/10 chest pain, therefore, STEMI alert has been called which I agree with. PLAN Plan is for emergency left heart catheterization. MD CARLITOS Cash/EO /9:44 PM /9:59 PM
[2016-12-04] VITALS (26 sets, daily range): BP systolic 116–123; BP diastolic 67–80; PULSE 65–100; RESP 16–20; TEMP 97.4–98.3; O2SAT 94–97
[2016-12-04] MEDS ORDERED: LORazepam 2 MG/ML VIAL IV PUSH PRN ×4 (00:15)
[2016-12-04] MEDS ORDERED: LORazepam 2 MG TAB PO PRN (00:15)
[2016-12-04] MEDS ORDERED: FLUMAZENIL 0.5 MG/5 ML VIAL IV PUSH PRN (00:15)
[2016-12-04] MEDS ORDERED: LORazepam 1 MG TAB PO PRN (00:15)
[2016-12-04] MEDS ORDERED: ACETAMINOPHEN 325 MG TAB PO ONE (00:15)
[2016-12-04] MEDS: ONDANSETRON HCL 4 MG/2 ML VIAL IV PUSH PRN (00:20)
[2016-12-04] MEDS ORDERED: ACETAMINOPHEN/HYDROcodone 325 MG/5 MG TAB PO ONE (04:00)
[2016-12-04 06:42] LABS: AUTOMATED NEUTROPHIL # 5.5 TH/MM3 (1.8-7.7); BASOPHIL % 0.2 % (0.0-2.0); HEMATOCRIT 37.3 % (39.0-51.0); HEMO FLAGS DIFF FINAL; LYMPH % 10.3 % (9.0-44.0); LYMPHOCYTE # 0.8 TH/MM3 (1.0-4.8); MEAN CELL VOLUME 99.8 FL (80.0-100.0); MEAN CORPUSCULAR HEMOGLOBIN 34.5 PG (27.0-34.0); MEAN CORPUSCULAR HGB CONC 34.6 % (32.0-36.0); MONO % 19.3 % (0.0-8.0); NEUT % 70.2 % (16.0-70.0); PLATELET COUNT 185 TH/MM3 (150-450); RED BLOOD COUNT 3.74 MIL/MM3 (4.50-5.90); RED CELL DISTRIBUTION WIDTH 14.4 % (11.6-17.2); WHITE BLOOD COUNT 7.9 TH/MM3 (4.0-11.0)
[2016-12-04 07:32] LABS: BICARBONATE 24.7 MEQ/L (21.0-32.0); HDL CHOLESTEROL 55.7 MG/DL (40.0-60.0); INDIRECT BILIRUBIN 0.6 MG/DL (0.0-0.8); POTASSIUM 3.9 MEQ/L (3.5-5.1); TOTAL BILIRUBIN ADULT 0.9 MG/DL (0.2-1.0)
[2016-12-04 07:49] LABS: CKMB 85.5 NG/ML (0.5-3.6)
[2016-12-04] MEDS: SODIUM CHLORIDE 0.9% FLUSH 10 ML FLUSH SCH ×2 (09:00→21:00)
[2016-12-04] MEDS: RAMIPRIL 2.5 MG CAP PO SCH (09:00)
[2016-12-04] MEDS: PRASUGREL 10 MG TAB PO SCH (09:47)
[2016-12-04] MEDS: ASPIRIN 81 MG CHEW TAB PO SCH (09:49)
[2016-12-04] MEDS: CARVEDILOL 3.125 MG TAB PO SCH ×2 (09:50→21:10)
--- NOTE | 2016-12-04 10:27 | MA ---
cc: KATHIE HONEYCUTT M.D. DATE: 12/03/2016 PROCEDURE Left catheterization, left ventriculography, coronary angiography, PCI with bare metal stent x2 to the distal right coronary artery. INDICATIONS STEMI, coronary artery disease. DETAILS OF PROCEDURE The patient was brought to the cardiac catheterization lab, prepped and draped in the usual sterile fashion. 10 cc of 1% lidocaine was used to locally anesthetize the right common femoral artery. A 6-Guamanian sheath was placed in the right common femoral artery. A 4-Guamanian JL4 diagnostic catheter was used to performed left ventriculography. A 6-Guamanian at JR4 and AR-1 guide catheter were used to perform right coronary angiography and PCI. FINDINGS The left main coronary artery has no significant disease angiographically. The left circumflex vessel has mild disease in the proximal segment up to 10-20% angiographically. The first obtuse marginal vessel is a medium to large vessel. Over the proximal bifurcation no significant obstructive disease angiographically. The LAD is transapical. There is mild disease at the bifurcation with a medium-sized diagonal artery up to 20% angiographically. The right coronary artery is a large dominant vessel with mild diffuse disease in the midsegment up to 40% angiographically. There is slight mortensen's crook in the proximal segment. There is a large thrombus in the distal segment with what appears angiographically to be about a 90% stenosis. There is ZACHARY-II flow into the distal vessel. The right PDA appears be occluded in the mid to distal segment. The patient was given 70 units/kg of heparin with an ACT of 252. A 0.014 [place] guidewire was not able to cross the lesion at the site of clot. I had to use a 2.75 x 8 balloon to cross the lesion but I could not advance the balloon across the lesion. I used multiple balloons including a 2.0 and a 1.5 x 12 balloon but these were all unable to cross. I finally double-wired the lesion and was able to cross with a 1.25 x 8 Euphora balloon, did two inflations at 20 atmospheres for 30 seconds. I then further predilated the lesion with a 1.5 x 8 Euphora balloon with two inflations at 20 atmospheres for 30 seconds. I then predilated the lesion with a 2.75 x 8 Euphora balloon with one inflation of 10 atmospheres for 20 seconds. I then tried to deliver a 4.0 x 12 Integrity stent but could not cross the lesion. Therefore, I further predilated the lesion with a 3.0 x 12 Euphora balloon. I was then able to deliver a 4.0 x 12 Integrity stent but could not quite cover the distal segment of the lesion. I delivered this stent with one inflation to 10 atmospheres for 20 seconds. I then delivered a 4.0 x 8 integrity stent to cover the distal lesion, inflated with one inflation to 10 atmospheres for 20 seconds. The stenosis went from 99% with ZACHARY-II flow to 0% with ZACHARY-III flow. I then gave the patient 200 mcg of intracoronary Nipride. There was still no flow in the distal right PDA. I did contact Dr. Thania Garcia who was actually present during the procedure as initially I did not think I would be able to cross the lesion and I thought the patient may need emergency bypass. I was not able to wire the mid to distal PDA. I suspect due to the patient's symptoms for three days that the thrombus was extremely organized and therefore was very difficult to wire the lesion. Note, when I did wire the lesion I needed a lot of balloon support and guide support to push the wire through the thrombus. I then did an left ventriculogram with a 4-Guamanian JR4 catheter. LV pressures 140/8-11. EF of 60%. The posterior wall appeared to be moderately to severely hypokinetic. CONCLUSIONS 1. STEMI with a culprit large thrombus in the distal right coronary artery with ZACHARY-II flow beyond probably a 99% stenosis based on the fact that it was extremely difficult to place a 0.014 [place] guidewire across the lesion and I was not able to do this without strong guide support and balloon support, as well I was not able to deliver a 1.2 mm balloon without a jesus wire in place. 2. Successful PCI with bare metal stent x2 to the distal right coronary artery from 99% with ZACHARY-II flow to 0% with ZACHARY-III flow. 3. Normal left ventricular systolic function, ejection fraction 60%. 4. Moderate to severe hypokinesis of the posterior wall. RECOMMENDATIONS 1. Recommend Effient 60 mg p.o. load then 10 mg daily for 12-15 months. 2. Aspirin 162 mg daily. 3. per protocol. 4. Statin, beta-emilia, JEAN-CLAUDE inhibitor as well. 5. Strongly recommend alcohol cessation. The patient is still having chest pain post procedure. I suspect this is due to the occluded distal right PDA which I was not able to wire and stent for the aforementioned reasons above. MD CARLITOS Cash/ADAN /5:11 PM /9:49 AM
--- NOTE | 2016-12-04 10:50 | HHI.HP ---
[facility] No Primary Care Physician Admission Diagnosis STEMI Diagnoses: Travel History International Travel<30 Days: No Contact w/Intl Traveler <30 Da: No Traveled to Known Affected Are: No History of Present Illness 61-year-old male with a medical history significant for depression presented with complaint of chest pain. Patient reports a history of alcoholism. He admits to drinking 2-3 beers a day. He reports that he has been having intermittent chest pressure for the past 3-4 days. He reports radiation to his left arm and neck area. He reports associated lightheadedness. The pain became severe yesterday evening which prompted the emergency room visit. On arrival the patient was found to have markedly elevated cardiac enzymes and Q waves indicated of ischemia. He was emergently taken to [facility]. Patient had stenting of the RCA. On evaluation today, he reports persistent chest pressure. He states the pain went from 10 to about 8-1/2 today. Currently denies shortness of breath. No nausea or vomiting. Review of Systems Constitutional: DENIES: Fever, Chills Cardiovascular: COMPLAINS OF: Chest pain, DENIES: Dyspnea on Exertion Gastrointestinal: DENIES: Nausea, Vomiting Except as stated in HPI: all other systems reviewed are Neg Past Family Social History Past Medical History Depression Anxiety Reported history of seizure but was never put on medications. He states he is awake during his seizures. Past Surgical History Hernia repair Appendectomy Tonsillectomy Lumbar and cervical spine fusion Reported Medications Reported Meds & Active Scripts Active Reported Effexor (Venlafaxine HCl) 37.5 Mg Tab 37.5 Mg PO Q12H Cymbalta DR (Duloxetine HCl) 30 Mg Capdr 30 Mg PO DAILY Allergies: Coded Allergies: No Known Allergies (Verified , 12/03/16) Family History Mother at 53 years old from complications of PR Social History Patient admits to drinking 2-3 beers a day. He denies tobacco or illicit drug use. Physical Exam Vital Signs Vital Signs Date Time Temp Pulse Resp B/P (MAP) Pulse Ox O2 Delivery O2 Flow Rate FiO2 12/04/16 07:30 81 20 117/75 (89) 95 12/04/16 06:00 75 12/04/16 05:00 70 12/04/16 04:01 97.8 79 121/67 (85) 97 12/04/16 04:00 88 12/04/16 04:00 78 121/67 12/04/16 03:00 80 12/04/16 03:00 79 121/67 12/04/16 02:00 86 110/71 12/04/16 02:00 88 12/04/16 01:00 94 12/04/16 01:00 97 122/79 12/04/16 00:00 100 12/03/16 23:00 97 12/03/16 23:00 97.8 95 140/90 (107) 96 12/03/16 22:00 92 12/03/16 22:00 101 139/87 12/03/16 21:22 16 12/03/16 21:00 94 12/03/16 21:00 86 165/104 12/03/16 20:00 92 12/03/16 20:00 89 161/105 12/03/16 19:10 81 179/108 12/03/16 19:00 97.7 93 168/112 (130) 99 12/03/16 19:00 80 12/03/16 17:45 83 16 177/108 (131) 96 210/106 (140) 12/03/16 15:47 85 178/85 12/03/16 15:39 98 Room Air 12/03/16 15:38 98 Room Air 12/03/16 14:39 98.7 84 16 165/93 (117) 98 Physical Exam GENERAL: This is a well-nourished, well-developed patient, in no apparent distress. SKIN: No rashes, ecchymoses or lesions. Cool and dry. HEAD: Atraumatic. Normocephalic. No temporal or scalp tenderness. EYES: Pupils equal round and reactive. Extraocular motions intact. No scleral icterus. No injection or drainage. ENT: Nose without bleeding, purulent drainage or septal hematoma. Throat without erythema, tonsillar hypertrophy or exudate. Uvula midline. Airway patent. NECK: Trachea midline. No JVD or lymphadenopathy. Supple, nontender, no meningeal signs. CARDIOVASCULAR: Regular rate and rhythm without murmurs, gallops, or rubs. RESPIRATORY: Clear to auscultation. Breath sounds equal bilaterally. No wheezes , rales, or rhonchi. GASTROINTESTINAL: Abdomen soft, non-tender, nondistended. No hepato-splenomegaly , or palpable masses. No guarding. MUSCULOSKELETAL: Extremities without clubbing, cyanosis, or edema. No joint tenderness, effusion, or edema noted. No calf tenderness. Negative Homans sign bilaterally. NEUROLOGICAL: Awake and alert. Cranial nerves II through XII intact. Motor and sensory grossly within normal limits. Five out of 5 muscle strength in all muscle groups. Normal speech. Laboratory Laboratory Tests Test 12/03/16 14:56 12/04/16 04:38 White Blood Count 11.3 7.9 Red Blood Count 4.87 3.74 Hemoglobin 16.6 12.9 Bedside Hemoglobin 17.7 Hematocrit 49.3 37.3 Bedside Hematocrit 52.0 Mean Corpuscular Volume 101.4 99.8 Mean Corpuscular Hemoglobin 34.1 34.5 Mean Corpuscular Hemoglobin Concent 33.7 34.6 Red Cell Distribution Width 14.3 14.4 Platelet Count 217 185 Mean Platelet Volume 7.6 7.0 Neutrophils (%) (Auto) 88.9 70.2 Lymphocytes (%) (Auto) 4.5 10.3 Monocytes (%) (Auto) 5.8 19.3 Eosinophils (%) (Auto) 0.3 0.0 Basophils (%) (Auto) 0.5 0.2 Neutrophils # (Auto) 10.0 5.5 Lymphocytes # (Auto) 0.5 0.8 Monocytes # (Auto) 0.7 1.5 Eosinophils # (Auto) 0.0 0.0 Basophils # (Auto) 0.1 0.0 CBC Comment AUTO DIFF DIFF FINAL Differential Comment AUTO DIFF CONFIRMED Platelet Estimate NORMAL Platelet Morphology Comment NORMAL Prothrombin Time 11.3 Prothromb Time International Ratio 1.0 Activated Partial Thromboplast Time 24.7 Bedside Sodium 140 Blood Urea Nitrogen 9 12 Creatinine 1.10 0.96 Random Glucose 136 123 Total Protein 8.9 6.7 Albumin 4.3 3.2 Calcium Level 9.0 7.7 Alkaline Phosphatase 76 54 Aspartate Amino Transf (AST/SGOT) 104 252 Alanine Aminotransferase (ALT/SGPT) 41 41 Total Bilirubin 0.6 0.9 Sodium Level 136 136 Potassium Level 4.2 3.9 Chloride Level 100 99 Carbon Dioxide Level 20.2 24.7 Bedside Potassium 4.4 Bedside Chloride 99 Anion Gap 16 12 Bedside Blood Urea Nitrogen 7 Bedside Creatinine 1.1 Estimat Glomerular Filtration Rate 68 79 Bedside Glucose 148 Total Creatine Kinase 524 1177 Creatine Kinase MB 45.8 85.5 Creatine Kinase MB % 8.7 7.3 Troponin I 11.40 Lipase 165 Direct Bilirubin 0.3 Indirect Bilirubin 0.6 Triglycerides Level 118 Cholesterol Level 174 LDL Cholesterol 95 HDL Cholesterol 55.7 Cholesterol/HDL Ratio 3.12 Result Diagram: 12/04/168 12/04/16437 Imaging Last Impressions Chest X-Ray 12/03/16 1451 Signed Impressions: Service Date/Time: Saturday, December 03, 2016 15:05 - CONCLUSION: Compensated cardiomegaly otherwise negative Jacques Mack MD FACR Kristin VTE Risk Assessment Kristin VTE Risk Assessment: Mod/High Risk (score >= 2) Jose Manuelrini Risk Assessment Model Point Value = 1 Point Value = 2 Point Value = 3 Point Value = 5 Age 41-60 Minor surgery BMI > 25 kg/m2 Swollen legs Varicose veins or History of unexplained or recurrent spontaneous Oral contraceptives or hormone replacement Sepsis (< 1 month) Serious lung disease, including pneumonia (< 1 month) Abnormal pulmonary function Acute myocardial infarction Congestive heart failure (< 1 month) History of inflammatory bowel disease Medical patient at bed rest Age 61-74 Arthroscopic surgery Major open surgery (> 45 min) Laparoscopic surgery (> 45 min) Malignancy Confined to bed (> 72 hours) Immobilizing plaster cast Central venous access Age >= 75 History of VTE Family history of VTE Factor V Leiden Prothrombin [id number] Lupus anticoagulant Anticardiolipin antibodies Elevated serum homocysteine Heparin-induced thrombocytopenia Other congenital or acquired thrombophilia Stroke (< 1 month) Elective arthroplasty Hip, pelvis, or leg fracture Acute spinal cord injury (< 1 month) Prophylaxis Regimen Total Risk Factor Score Risk Level Prophylaxis Regimen 0-1 Low Early ambulation 2 Moderate Order ONE of the following: *Sequential Compression Device (SCD) *Heparin 5000 units SQ BID 3-4 Higher Order ONE of the following medications: *Heparin 5000 units SQ TID *Enoxaparin/Lovenox 40 mg SQ daily (WT < 150 kg, CrCl > 30 mL/min) *Enoxaparin/Lovenox 30 mg SQ daily (WT < 150 kg, CrCl > 10-29 mL/min) *Enoxaparin/Lovenox 30 mg SQ BID (WT < 150 kg, CrCl > 30 mL/min) AND/OR *Sequential Compression Device (SCD) 5 or more Highest Order ONE of the following medications: *Heparin 5000 units SQ TID (Preferred with Epidurals) *Enoxaparin/Lovenox 40 mg SQ daily (WT < 150 kg, CrCl > 30 mL/min) *Enoxaparin/Lovenox 30 mg SQ daily (WT < 150 kg, CrCl > 10-29 mL/min) *Enoxaparin/Lovenox 30 mg SQ BID (WT < 150 kg, CrCl > 30 mL/min) AND *Sequential Compression Device (SCD) Assessment and Plan Problem List: (1) STEMI (ST elevation myocardial infarction) ICD Code: I21.3 - ST elevation (STEMI) myocardial infarction of unspecified site Status: Acute Plan: Status post heart catheterization, RCA stent placed. Cardiology following. Appreciate assistance. Continue aspirin, Effient, Coreg , Altace. Patient reports persistent chest pain. Cardiology aware and will follow-up. Will add [place] and morphine as needed to help with pain. (2) CAD (coronary artery disease) ICD Code: I25.10 - Atherosclerotic heart disease of [place] coronary artery without angina pectoris Plan: See above (3) Depression ICD Code: F32.9 - Major depressive disorder, single episode, unspecified Plan: Resume Effexor and Cymbalta. (4) Alcoholism ICD Code: F10.20 - Alcohol dependence, uncomplicated Status: Acute Plan: Patient was advised on complete alcohol cessation Physician Certification 2 Midnight Certification Type: Admission for Inpatient Services Order for Inpatient Services The services are ordered in accordance with Medicare regulations or non- Medicare payer requirements, as applicable. In the case of services not specified as inpatient-only, they are appropriately provided as inpatient services in accordance with the 2-midnight benchmark. Estimated LOS (days): 3 days is the estimated time the patient will need to remain in the hospital, assuming treatment plan goals are met and no additional complications. Post-Hospital Plan: Home Problem Qualifiers (1) STEMI (ST elevation myocardial infarction): Qualified Codes: I21.3 - ST elevation (STEMI) myocardial infarction of unspecified site Abimbola Hickman MD Dec 04, 2016 10:50
[2016-12-04] MEDS ORDERED: MORPHINE SULFATE 4 MG/ML INJ IV PUSH PRN (11:00)
[2016-12-04] MEDS: VENLAFAXINE HCL 37.5 MG TAB PO SCH ×2 (11:38→21:10)
[2016-12-04] MEDS: DULoxetine HCl DR 30 MG CAP PO SCH (11:38)
[2016-12-04] MEDS: ACETAMINOPHEN/HYDROcodone 325 MG/5 MG TAB PO PRN ×2 (11:39→19:12)
--- NOTE | 2016-12-04 13:42 | EKG ---
Date Performed: 12/03/2016 Time Performed: 21:40:12 PTAGE: 61 years EKG: Sinus rhythm Left axis deviation Septal ST-T changes are nonspecific Inferior infarct in evolution Abnormal ECG PREVIOUS TRACING : 12/03/2016 14.45 DOCTOR: Ceferino Clay Interpretating Date/Time 12/04/2016 13:41:45
--- NOTE | 2016-12-04 13:42 | EKG ---
Date Performed: 12/03/2016 Time Performed: 14:45:16 PTAGE: 61 years EKG: Sinus rhythm WITH SINUS ARRHYTHMIA INFERIOR MYOCARDIAL INFARCTION ACUTE MS New ST elevation inferior leads, probable acute inferior MS Clinical correlation strongly recommended PREVIOUS TRACING :09/02/14 DOCTOR: Ceferino Clay Interpretating Date/Time 12/04/2016 13:41:19
--- NOTE | 2016-12-04 13:42 | EKG ---
Date Performed: 12/04/2016 Time Performed: 04:51:00 PTAGE: 61 years EKG: Sinus rhythm Left axis deviation Inferior infarct - age undetermined Septal ST-T changes are nonspecific Continue d evolution of inferior infarct Abnormal ECG PREVIOUS TRACING : 12/03/2016 21.40 DOCTOR: Ceferino Clay Interpretating Date/Time 12/04/2016 13:42:05
--- NOTE | 2016-12-04 15:19 | PD.CARD.PN ---
Subjective Subjective Remarks asleep in nad, easily arousable, c/o intermittent severe chest pain Objective Vital Signs / I&O Vital Signs Date Time Temp Pulse Resp B/P (MAP) Pulse Ox O2 Delivery O2 Flow Rate FiO2 12/04/16 07:30 81 20 117/75 (89) 95 12/04/16 06:00 75 12/04/16 05:00 70 12/04/16 04:01 97.8 79 121/67 (85) 97 12/04/16 04:00 88 12/04/16 04:00 78 121/67 12/04/16 03:00 80 12/04/16 03:00 79 121/67 12/04/16 02:00 86 110/71 12/04/16 02:00 88 12/04/16 01:00 94 12/04/16 01:00 97 122/79 12/04/16 00:00 100 12/03/16 23:00 97 12/03/16 23:00 97.8 95 140/90 (107) 96 12/03/16 22:00 92 12/03/16 22:00 101 139/87 12/03/16 21:22 16 12/03/16 21:00 94 12/03/16 21:00 86 165/104 12/03/16 20:00 92 12/03/16 20:00 89 161/105 12/03/16 19:10 81 179/108 12/03/16 19:00 97.7 93 168/112 (130) 99 12/03/16 19:00 80 12/03/16 17:45 83 16 177/108 (131) 96 210/106 (140) 12/03/16 15:47 85 178/85 12/03/16 15:39 98 Room Air 12/03/16 15:38 98 Room Air I/O 12/03/16 12/03/16 12/03/16 12/04/16 12/04/16 12/04/16 06:59 14:59 22:59 06:59 14:59 22:59 Intake Total 720 ml 230 ml Output Total 300 ml Balance 420 ml 230 ml Intake Oral 720 ml IV Total 230 ml Output Urine Total 300 ml Physical Exam GENERAL: SKIN: Warm and dry. HEAD: Normocephalic. EYES: No scleral icterus. No injection or drainage. NECK: Supple, trachea midline. No JVD or lymphadenopathy. CARDIOVASCULAR: Regular rate and rhythm without murmurs, gallops, or rubs. RESPIRATORY: Breath sounds equal bilaterally. No accessory muscle use. GASTROINTESTINAL: Abdomen soft, non-tender, nondistended. MUSCULOSKELETAL: No cyanosis, or edema. BACK: Nontender without obvious deformity. No CVA tenderness. Laboratory Laboratory Tests Test 12/04/16 04:38 White Blood Count 7.9 TH/MM3 Red Blood Count 3.74 MIL/MM3 Hemoglobin 12.9 GM/DL Hematocrit 37.3 % Mean Corpuscular Volume 99.8 FL Mean Corpuscular Hemoglobin 34.5 PG Mean Corpuscular Hemoglobin Concent 34.6 % Red Cell Distribution Width 14.4 % Platelet Count 185 TH/MM3 Mean Platelet Volume 7.0 FL Neutrophils (%) (Auto) 70.2 % Lymphocytes (%) (Auto) 10.3 % Monocytes (%) (Auto) 19.3 % Eosinophils (%) (Auto) 0.0 % Basophils (%) (Auto) 0.2 % Neutrophils # (Auto) 5.5 TH/MM3 Lymphocytes # (Auto) 0.8 TH/MM3 Monocytes # (Auto) 1.5 TH/MM3 Eosinophils # (Auto) 0.0 TH/MM3 Basophils # (Auto) 0.0 TH/MM3 CBC Comment DIFF FINAL Differential Comment Blood Urea Nitrogen 12 MG/DL Creatinine 0.96 MG/DL Random Glucose 123 MG/DL Total Protein 6.7 GM/DL Albumin 3.2 GM/DL Calcium Level 7.7 MG/DL Alkaline Phosphatase 54 U/L Aspartate Amino Transf (AST/SGOT) 252 U/L Alanine Aminotransferase (ALT/SGPT) 41 U/L Total Bilirubin 0.9 MG/DL Direct Bilirubin 0.3 MG/DL Sodium Level 136 MEQ/L Potassium Level 3.9 MEQ/L Chloride Level 99 MEQ/L Carbon Dioxide Level 24.7 MEQ/L Anion Gap 12 MEQ/L Estimat Glomerular Filtration Rate 79 ML/MIN Indirect Bilirubin 0.6 MG/DL Total Creatine Kinase 1177 U/L Creatine Kinase MB 85.5 NG/ML Creatine Kinase MB % 7.3 % Triglycerides Level 118 MG/DL Cholesterol Level 174 MG/DL LDL Cholesterol 95 MG/DL HDL Cholesterol 55.7 MG/DL Cholesterol/HDL Ratio 3.12 RATIO Assessment and Plan Problem List: (1) CAD (coronary artery disease) ICD Codes: I25.10 - Atherosclerotic heart disease of [place] coronary artery without angina pectoris (2) Alcoholism ICD Codes: F10.20 - Alcohol dependence, uncomplicated Status: Acute (3) STEMI (ST elevation myocardial infarction) ICD Codes: I21.3 - ST elevation (STEMI) myocardial infarction of unspecified site Status: Acute Assessment and Plan 1.) CAD - suspect chest pain due to organized thrombus obstructing microvasculature and/or inflammation, rec continue aspirin, effient, coreg, altace, coreg, continue check cpk until peak determined, d/w nurse Problem Qualifiers (1) STEMI (ST elevation myocardial infarction): Qualified Codes: I21.3 - ST elevation (STEMI) myocardial infarction of unspecified site Paul Connolly MD Dec 04, 2016 15:19
[2016-12-04] MEDS: NITROGLYCERIN 2% OINT 1 GM PACKET TOPICAL SCH (19:11)
[2016-12-04] MEDS: ATORVASTATIN 10 MG TAB PO SCH (21:10)
[2016-12-05] VITALS (27 sets, daily range): BP systolic 99–129; BP diastolic 63–87; PULSE 58–72; RESP 16–18; TEMP 97.5–98.6; O2SAT 93–97
[2016-12-05] MEDS: ACETAMINOPHEN/HYDROcodone 325 MG/5 MG TAB PO PRN ×5 (00:22→20:19)
[2016-12-05] MEDS: NITROGLYCERIN 2% OINT 1 GM PACKET TOPICAL SCH ×4 (00:22→18:08)
[2016-12-05 06:56] LABS: HEMATOCRIT 37.3 % (39.0-51.0); MEAN CELL VOLUME 101.3 FL (80.0-100.0); MEAN CORPUSCULAR HEMOGLOBIN 34.4 PG (27.0-34.0); PLATELET COUNT 156 TH/MM3 (150-450); RED BLOOD COUNT 3.68 MIL/MM3 (4.50-5.90); REVIEW FLAG FINAL; WHITE BLOOD COUNT 7.2 TH/MM3 (4.0-11.0)
[2016-12-05 07:17] LABS: POTASSIUM 3.6 MEQ/L (3.5-5.1)
[2016-12-05 07:44] LABS: CKMB 16.1 NG/ML (0.5-3.6)
[2016-12-05] MEDS: SODIUM CHLORIDE 0.9% FLUSH 10 ML FLUSH SCH ×2 (08:41→20:20)
[2016-12-05] MEDS: VENLAFAXINE HCL 37.5 MG TAB PO SCH ×2 (08:42→20:19)
[2016-12-05] MEDS: PRASUGREL 10 MG TAB PO SCH (08:42)
[2016-12-05] MEDS: RAMIPRIL 2.5 MG CAP PO SCH (08:43)
[2016-12-05] MEDS: ASPIRIN 81 MG CHEW TAB PO SCH (08:43)
[2016-12-05] MEDS: DULoxetine HCl DR 30 MG CAP PO SCH (08:43)
[2016-12-05] MEDS: CARVEDILOL 3.125 MG TAB PO SCH ×2 (08:43→20:19)
--- NOTE | 2016-12-05 09:42 | HHI.PR ---
Subjective Remarks Patient reports overall improvement but states that he still get intermittent severe chest pain. He is hoping to be able to go home tomorrow. Objective Vitals Vital Signs Date Time Temp Pulse Resp B/P (MAP) Pulse Ox O2 Delivery O2 Flow Rate FiO2 12/05/16 09:09 68 12/05/16 08:00 65 12/05/16 08:00 97.7 65 18 129/87 (101) 94 12/05/16 07:00 64 12/05/16 06:00 68 12/05/16 05:00 65 12/05/16 04:00 72 12/05/16 03:00 65 12/05/16 03:00 98.4 68 16 128/75 (92) 12/05/16 02:00 64 12/05/16 01:00 68 12/05/16 00:00 68 12/04/16 23:00 69 12/04/16 23:00 98.2 68 16 120/80 (93) 94 12/04/16 22:00 74 12/04/16 21:00 72 12/04/16 20:00 70 12/04/16 19:14 72 117/79 12/04/16 19:00 65 12/04/16 19:00 97.4 74 18 123/79 (94) 95 Arterial Line 12/04/16 18:00 74 12/04/16 17:00 70 12/04/16 16:00 68 12/04/16 15:00 98.2 77 16 117/79 (92) 95 12/04/16 15:00 76 12/04/16 14:00 70 12/04/16 13:00 70 12/04/16 12:00 78 12/04/16 11:00 98.3 83 16 116/80 (92) 95 12/04/16 11:00 86 12/04/16 10:00 92 I/O 12/04/16 12/04/16 12/04/16 12/05/16 12/05/16 12/05/16 07:00 15:00 23:00 07:00 15:00 23:00 Intake Total 720 ml 230 ml 1916 ml 480 ml Output Total 300 ml 401 ml 400 ml Balance 420 ml 230 ml 1515 ml 80 ml Intake Oral 720 ml 1860 ml 480 ml IV Total 230 ml 56 ml Output Urine Total 300 ml 400 ml 400 ml Stool Total 1 ml # Bowel Movements 1 Result Diagram: 12/05/16 0442 12/05/16 0442 Imaging Last Impressions Chest X-Ray 12/03/16 1451 Signed Impressions: Service Date/Time: Saturday, December 03, 2016 15:05 - CONCLUSION: Compensated cardiomegaly otherwise negative Jacques Mack MD FACR Objective Remarks GENERAL: This is a well-nourished, well-developed patient, in no apparent distress. CARDIOVASCULAR: Normal rate and regular rhythm without murmurs, gallops, or rubs. RESPIRATORY: Good respiratory efforts. Breath sounds equal and clear to auscultation bilaterally. GASTROINTESTINAL: Abdomen soft, non-tender, non-distended. Normal active bowel sounds MUSCULOSKELETAL: Extremities without cyanosis, or edema. NEURO: Alert & Oriented x4 to person, place, time, situation. Moves all ext x4 PSYCH: Appropriate mood and affect. A/P Problem List: (1) STEMI (ST elevation myocardial infarction) ICD Code: I21.3 - ST elevation (STEMI) myocardial infarction of unspecified site Status: Acute Plan: Status post heart catheterization, RCA stent placed. Cardiology following. Appreciate assistance. Continue aspirin, Effient, Coreg , Altace. Patient reports intermittent and severe chest pain. [place] is helping. Per Cardiology, suspect chest pain is due to obstructing microvasculatature and/or inflammation. Cardiac enzymes seems to have peaked, still elevated but trending down. Further plans per Cardiology. (2) CAD (coronary artery disease) ICD Code: I25.10 - Atherosclerotic heart disease of [place] coronary artery without angina pectoris Plan: See above (3) Depression ICD Code: F32.9 - Major depressive disorder, single episode, unspecified Plan: Resume Effexor and Cymbalta. (4) Alcoholism ICD Code: F10.20 - Alcohol dependence, uncomplicated Status: Acute Plan: Patient was advised on complete alcohol cessation Problem Qualifiers (1) STEMI (ST elevation myocardial infarction): Qualified Codes: I21.3 - ST elevation (STEMI) myocardial infarction of unspecified site Abimbola Hickman MD Dec 05, 2016 09:42
--- NOTE | 2016-12-05 13:02 | PD.CARD.PN ---
Subjective Subjective Remarks states chest pain better Objective Vital Signs / I&O Vital Signs Date Time Temp Pulse Resp B/P (MAP) Pulse Ox O2 Delivery O2 Flow Rate FiO2 12/05/16 12:03 64 12/05/16 11:04 62 12/05/16 11:00 97.5 58 18 99/63 (75) 93 12/05/16 10:07 72 12/05/16 09:09 68 12/05/16 08:00 65 12/05/16 08:00 97.7 65 18 129/87 (101) 94 12/05/16 07:00 64 12/05/16 06:00 68 12/05/16 05:00 65 12/05/16 04:00 72 12/05/16 03:00 65 12/05/16 03:00 98.4 68 16 128/75 (92) 12/05/16 02:00 64 12/05/16 01:00 68 12/05/16 00:00 68 12/04/16 23:00 69 12/04/16 23:00 98.2 68 16 120/80 (93) 94 12/04/16 22:00 74 12/04/16 21:00 72 12/04/16 20:00 70 12/04/16 19:14 72 117/79 12/04/16 19:00 65 12/04/16 19:00 97.4 74 18 123/79 (94) 95 Arterial Line 12/04/16 18:00 74 12/04/16 17:00 70 12/04/16 16:00 68 12/04/16 15:00 98.2 77 16 117/79 (92) 95 12/04/16 15:00 76 12/04/16 14:00 70 I/O 12/04/16 12/04/16 12/04/16 12/05/16 12/05/16 12/05/16 06:59 14:59 22:59 06:59 14:59 22:59 Intake Total 720 ml 230 ml 1916 ml 480 ml Output Total 300 ml 401 ml 400 ml Balance 420 ml 230 ml 1515 ml 80 ml Intake Oral 720 ml 1860 ml 480 ml IV Total 230 ml 56 ml Output Urine Total 300 ml 400 ml 400 ml Stool Total 1 ml # Bowel Movements 1 Physical Exam GENERAL: SKIN: Warm and dry. HEAD: Normocephalic. EYES: No scleral icterus. No injection or drainage. NECK: Supple, trachea midline. No JVD or lymphadenopathy. CARDIOVASCULAR: Regular rate and rhythm without murmurs, gallops, or rubs. RESPIRATORY: Breath sounds equal bilaterally. No accessory muscle use. GASTROINTESTINAL: Abdomen soft, non-tender, nondistended. MUSCULOSKELETAL: No cyanosis, or edema. BACK: Nontender without obvious deformity. No CVA tenderness. Laboratory Laboratory Tests Test 12/04/16 16:14 12/05/16 04:42 Total Creatine Kinase 818 U/L 550 U/L Creatine Kinase MB 39.0 NG/ML 16.1 NG/ML Creatine Kinase MB % 4.8 % 2.9 % Troponin I 29.80 NG/ML 20.20 NG/ML White Blood Count 7.2 TH/MM3 Red Blood Count 3.68 MIL/MM3 Hemoglobin 12.7 GM/DL Hematocrit 37.3 % Mean Corpuscular Volume 101.3 FL Mean Corpuscular Hemoglobin 34.4 PG Mean Corpuscular Hemoglobin Concent 34.0 % Red Cell Distribution Width 14.0 % Platelet Count 156 TH/MM3 Mean Platelet Volume 7.1 FL Blood Urea Nitrogen 13 MG/DL Creatinine 0.83 MG/DL Random Glucose 99 MG/DL Calcium Level 8.2 MG/DL Sodium Level 137 MEQ/L Potassium Level 3.6 MEQ/L Chloride Level 100 MEQ/L Carbon Dioxide Level 28.0 MEQ/L Anion Gap 9 MEQ/L Estimat Glomerular Filtration Rate 94 ML/MIN Assessment and Plan Problem List: (1) CAD (coronary artery disease) ICD Codes: I25.10 - Atherosclerotic heart disease of [place] coronary artery without angina pectoris (2) Alcoholism ICD Codes: F10.20 - Alcohol dependence, uncomplicated Status: Acute (3) STEMI (ST elevation myocardial infarction) ICD Codes: I21.3 - ST elevation (STEMI) myocardial infarction of unspecified site Status: Acute Assessment and Plan 1.) CAD - chest pain improving, ck and trop have peaked and are declining, suspect chest pain due to organized thrombus obstructing microvasculature and/ or inflammation, rec continue aspirin, effient, coreg, altace, coreg, order 2d echo, d/w nurse Problem Qualifiers (1) STEMI (ST elevation myocardial infarction): Qualified Codes: I21.3 - ST elevation (STEMI) myocardial infarction of unspecified site Paul Connolly MD Dec 05, 2016 13:02
--- NOTE | 2016-12-05 18:15 | ECHRPT ---
Indication: CHEST PAIN CONCLUSIONS Normal left ventricular size. Wall thickness is normal. The left ventricular systolic function is mildly reduced with an estimated ejection fraction in the range of 45- 50%. Mild aortic valve regurgitation. Aortic valve sclerosis is present. BP: / HR: Rhythm: Sinus MEASUREMENTS (Male / Female) Normal Values Technical Quality:Technically difficult study 2D ECHO LV Diastolic Diameter PLAX 4.2 cm 4.2 - 5.9 / 3.9 - 5.3 cm LV Systolic Diameter PLAX 3.4 cm IVS Diastolic Thickness 1.2 cm 0.6 - 1.0 / 0.6 - 0.9 cm LVPW Diastolic Thickness 1.0 cm 0.6 - 1.0 / 0.6 - 0.9 cm LV Relative Wall Thickness 0.5 RV Internal Dim ED PLAX 2.4 cm LA Systolic Diameter LX 3.0 cm 3.0 - 4.0 / 2.7 - 3.8 cm DOPPLER AV Peak Velocity 191.0 cm/s AV Peak Gradient 14.6 mmHg AI Peak Velocity 458.0 cm/s AI Peak Gradient 83.9 mmHg AI Pressure Half Time 626.0 ms LVOT Peak Velocity 80.9 cm/s LVOT Peak Gradient 2.6 mmHg Mitral E Point Velocity 51.8 cm/s Mitral A Point Velocity 93.3 cm/s Mitral E to A Ratio 0.6 TR Peak Velocity 179.0 cm/s TR Peak Gradient 12.8 mmHg FINDINGS LEFT VENTRICLE Normal left ventricular size. Wall thickness is normal. The left ventricular systolic function is mildly reduced with an estimated ejection fraction in the range of 45- 50%. RIGHT VENTRICLE Normal right ventricular size and systolic function. LEFT ATRIUM The left atrial size is normal. RIGHT ATRIUM The right atrial size is normal. ATRIAL SEPTUM Normal atrial septal thickness without atrial level shunting by limited color doppler interrogation. AORTA The aortic root and proximal ascending aorta are normal in size on limited imaging. MITRAL VALVE Structurally normal mitral valve. No mitral valve stenosis or regurgitation. AORTIC VALVE Mild aortic valve regurgitation. Aortic valve sclerosis is present. TRICUSPID VALVE Structurally normal tricuspid valve. No tricuspid valve stenosis or regurgitation. PULMONARY VALVE The pulmonary valve is not well visualized. VESSELS The inferior vena cava is normal in size. PERICARDIUM No pericardial effusion. Buzz Echavarria MD (Electronically Signed) Final Date:05 December 2016 18:14
[2016-12-05 19:44] LABS: CKMB 7.3 NG/ML (0.5-3.6)
[2016-12-05] MEDS: ATORVASTATIN 10 MG TAB PO SCH (20:19)
[2016-12-06] VITALS (14 sets, daily range): BP systolic 118–129; BP diastolic 74–78; PULSE 59–78; RESP 18–20; TEMP 97.5–98.4; O2SAT 96
[2016-12-06] MEDS: NITROGLYCERIN 2% OINT 1 GM PACKET TOPICAL SCH ×3 (00:07→12:57)
[2016-12-06] MEDS: ACETAMINOPHEN/HYDROcodone 325 MG/5 MG TAB PO PRN ×3 (00:07→09:56)
[2016-12-06] MEDS: PRASUGREL 10 MG TAB PO SCH (09:00)
[2016-12-06] MEDS: CARVEDILOL 3.125 MG TAB PO SCH (09:57)
[2016-12-06] MEDS: DULoxetine HCl DR 30 MG CAP PO SCH (09:57)
[2016-12-06] MEDS: RAMIPRIL 2.5 MG CAP PO SCH (09:57)
[2016-12-06] MEDS: VENLAFAXINE HCL 37.5 MG TAB PO SCH (09:57)
[2016-12-06] MEDS: ASPIRIN 81 MG CHEW TAB PO SCH (09:57)
[2016-12-06] MEDS: SODIUM CHLORIDE 0.9% FLUSH 10 ML FLUSH SCH (09:58)
[2016-12-06] MEDS ORDERED: PNEUMOCOCCAL POLYVALENT INJ 25 MCG/0.5 ML SYR IM ONE (10:00)
[2016-12-06] MEDS ORDERED: NITR1SUB2 SL (11:29)
[2016-12-06] MEDS ORDERED: ASPI81CH25 PO (11:29)
[2016-12-06] MEDS ORDERED: LIPI10TA PO (11:29)
[2016-12-06] MEDS ORDERED: VENL37.5 PO (11:29)
[2016-12-06] MEDS ORDERED: HYDR-3516 PO (11:29)
[2016-12-06] MEDS ORDERED: PRAS10TA PO (11:29)
[2016-12-06] MEDS ORDERED: CARV3.125 PO (11:29)
[2016-12-06] MEDS ORDERED: CYMB30CA PO (11:29)
--- NOTE | 2016-12-06 11:29 | HHI.DS ---
Discharge Summary Admission Date Dec 03, 2016 at 15:24 Discharge Date: Dec 06, 2016 Admitting Diagnosis STEMI (1) STEMI (ST elevation myocardial infarction) ICD Code: I21.3 - ST elevation (STEMI) myocardial infarction of unspecified site Status: Acute (2) CAD (coronary artery disease) ICD Code: I25.10 - Atherosclerotic heart disease of [place] coronary artery without angina pectoris (3) Depression ICD Code: F32.9 - Major depressive disorder, single episode, unspecified (4) Alcoholism ICD Code: F10.20 - Alcohol dependence, uncomplicated Status: Acute Procedures Heart catheterization Brief History - From Admission 61-year-old male with a medical history significant for depression presented with complaint of chest pain. Patient reports a history of alcoholism. He admits to drinking 2-3 beers a day. He reports that he has been having intermittent chest pressure for the past 3-4 days. He reports radiation to his left arm and neck area. He reports associated lightheadedness. The pain became severe yesterday evening which prompted the emergency room visit. On arrival the patient was found to have markedly elevated cardiac enzymes and Q waves indicated of ischemia. He was emergently taken to the [facility]. Patient had stenting of the RCA. On evaluation today, he reports persistent chest pressure. He states the pain went from 10 to about 8-1/2 today. Currently denies shortness of breath. No nausea or vomiting. CBC/BMP: 12/05/16 0442 12/05/16 0442 Significant Findings Laboratory Tests Test 12/03/16 14:56 12/04/16 04:38 12/04/16 16:14 12/05/16 04:42 White Blood Count 11.3 TH/MM3 (4.0-11.0) Bedside Hemoglobin 17.7 G/DL (12.0-17.0) Bedside Hematocrit 52.0 % (38.0-51.0) Mean Corpuscular Volume 101.4 FL (80.0-100.0) 101.3 FL (80.0-100.0) Mean Corpuscular Hemoglobin 34.1 PG (27.0-34.0) 34.5 PG (27.0-34.0) 34.4 PG (27.0-34.0) Neutrophils (%) (Auto) 88.9 % (16.0-70.0) 70.2 % (16.0-70.0) Lymphocytes (%) (Auto) 4.5 % (9.0-44.0) Neutrophils # (Auto) 10.0 TH/MM3 (1.8-7.7) Lymphocytes # (Auto) 0.5 TH/MM3 (1.0-4.8) 0.8 TH/MM3 (1.0-4.8) Random Glucose 136 MG/DL (74-106) 123 MG/DL (74-106) Total Protein 8.9 GM/DL (6.4-8.2) Aspartate Amino Transf (AST/SGOT) 104 U/L (15-37) 252 U/L (15-37) Carbon Dioxide Level 20.2 MEQ/L (21.0-32.0) Anion Gap 16 MEQ/L (5-15) Bedside Blood Urea Nitrogen 7 MG/DL (8-26) Estimat Glomerular Filtration Rate 68 ML/MIN (>89) 79 ML/MIN (>89) Bedside Glucose 148 MG/DL (60-95) Total Creatine Kinase 524 U/L (39-308) 1177 U/L (39-308) 818 U/L (39-308) 550 U/L (39-308) Creatine Kinase MB 45.8 NG/ML (0.5-3.6) 85.5 NG/ML (0.5-3.6) 39.0 NG/ML (0.5-3.6) 16.1 NG/ML (0.5-3.6) Creatine Kinase MB % 8.7 % (0.0-4.0) 7.3 % (0.0-4.0) 4.8 % (0.0-4.0) Troponin I 11.40 NG/ML (0.02-0.05) 29.80 NG/ML (0.02-0.05) 20.20 NG/ML (0.02-0.05) Red Blood Count 3.74 MIL/MM3 (4.50-5.90) 3.68 MIL/MM3 (4.50-5.90) Hemoglobin 12.9 GM/DL (13.0-17.0) 12.7 GM/DL (13.0-17.0) Hematocrit 37.3 % (39.0-51.0) 37.3 % (39.0-51.0) Monocytes (%) (Auto) 19.3 % (0.0-8.0) Monocytes # (Auto) 1.5 TH/MM3 (0-0.9) Albumin 3.2 GM/DL (3.4-5.0) Calcium Level 7.7 MG/DL (8.5-10.1) 8.2 MG/DL (8.5-10.1) Direct Bilirubin 0.3 MG/DL (0.0-0.2) Test 12/05/16 17:48 Total Creatine Kinase 418 U/L (39-308) Creatine Kinase MB 7.3 NG/ML (0.5-3.6) Troponin I 15.90 NG/ML (0.02-0.05) Imaging Last Impressions Chest X-Ray 12/03/16 1451 Signed Impressions: Service Date/Time: Saturday, December 03, 2016 15:05 - CONCLUSION: Compensated cardiomegaly otherwise negative Jacques Mack MD FACR PE at Discharge GENERAL: This is a well-nourished, well-developed patient, in no apparent distress. CARDIOVASCULAR: Normal rate and regular rhythm without murmurs, gallops, or rubs. RESPIRATORY: Good respiratory efforts. Breath sounds equal and clear to auscultation bilaterally. GASTROINTESTINAL: Abdomen soft, non-tender, non-distended. Normal active bowel sounds MUSCULOSKELETAL: Extremities without cyanosis, or edema. NEURO: Alert & Oriented x4 to person, place, time, situation. Moves all ext x4 PSYCH: Appropriate mood and affect. Pt update on day of discharge Patient reports is feeling okay. Chest pain has significantly improved. Cardiac enzymes trended down. Hospital Course 61-year-old male admitted with STEMI. The patient underwent a heart catheterization and had an RCA stent placed. He did have some residual chest pain after the procedure. Per industrial radiographer, suspect chest pain was due to organized thrombus obstructing microvasculature and/or inflammation. His cardiac enzymes peaked and trended down. Chest pain much improved. I discussed with cardiology on the day of discharge. Patient is to continue on aspirin, Effient, Coreg, lisinopril. He is advised to follow up outpatient. Other conditions treated include: Anxiety: Home medications were continued. Alcohol dependence: Patient was treated per [facility] protocol. Pt Condition on Discharge: Good Discharge Disposition: Disch w/ Home Health Serv Discharge Time: > 30 minutes Discharge Instructions DIET: Follow Instructions for: Heart Healthy Diet Activities you can perform: Regular-No Restrictions Follow up Referrals: Cardiology - 2 Weeks with Paul Connolly MD New Medications: Nitroglycerin SL (Nitroglycerin SL) 0.3 Mg Subl 0.3 MG SL DIRECTED PRN for CHEST PAIN, #20 TAB.SL 0 Refills ONE TABLET UNDER THE TONGUE NEEDED FOR CHEST PAIN, MAY REPEAT EVERY FIVE MINUTES FOR A TOTAL OF 3 DOSES OR CALL 911 IF NO RELIEF Aspirin (Aspirin Low Strength) 81 Mg Chew 162 MG PO DAILY, #30 EA Atorvastatin (Lipitor) 10 Mg Tab 10 MG PO HS, #30 TAB Carvedilol (Coreg) 3.125 Mg Tab 3.125 MG PO BID, #60 TAB Hydrocodone-Acetaminophen (Hydrocodone-Acetaminophen) 5-325 mg Tab 1 TAB PO Q4H PRN for severe pain, #15 TAB Prasugrel (Effient) 10 Mg Tab 10 MG PO DAILY, #30 TAB Continued Medications: Duloxetine DR (Cymbalta DR) 30 Mg Capdr 30 MG PO DAILY, #30 CAP 0 Refills (This prescription has been renewed) Venlafaxine (Effexor) 37.5 Mg Tab 37.5 MG PO Q12H, #60 TAB 0 Refills (This prescription has been renewed) Abimbola Hickman MD Dec 06, 2016 11:29
--- NOTE | 2016-12-06 11:30 | HHI.FF ---
Face to Face Verification Diagnosis: (1) STEMI (ST elevation myocardial infarction) (2) CAD (coronary artery disease) (3) Depression (4) Alcoholism Physical Therapy Order: Evaluate and Treat, Strength and gait training Home Health Nursing Order: Medical education Signs/symptoms of disease process Nursing assessment with vital signs I have seen patient Charli White on 12/06/16. My clinical findings support the need for the requested home health care services because: Deconditioned w/ increased weakness Need for psychosocial assistance I certify that my clinical findings support that this patient is homebound because: Need for psychosocial assistance Poor cardiac reserve Abimbola Hickman MD Dec 06, 2016 11:30
--- NOTE | 2016-12-06 12:27 | PD.CARD.PN ---
Subjective Subjective Remarks feels better Objective Vital Signs / I&O Vital Signs Date Time Temp Pulse Resp B/P (MAP) Pulse Ox O2 Delivery O2 Flow Rate FiO2 12/06/16 08:00 97.5 71 18 129/74 (92) 96 12/06/16 06:00 61 12/06/16 05:00 60 12/06/16 04:00 98.1 64 18 118/77 (91) 96 12/06/16 04:00 64 12/06/16 03:00 59 12/06/16 02:00 62 12/06/16 01:00 60 12/06/16 00:00 60 12/05/16 23:20 98.3 66 18 122/73 (89) 94 12/05/16 23:00 63 12/05/16 22:00 60 12/05/16 21:00 64 12/05/16 20:00 97.6 69 18 120/81 (94) 97 12/05/16 20:00 64 12/05/16 19:00 60 12/05/16 18:02 66 12/05/16 17:00 67 12/05/16 16:00 61 12/05/16 15:01 64 12/05/16 15:00 98.6 62 18 121/77 (92) 94 12/05/16 14:20 69 12/05/16 13:07 65 I/O 12/05/16 12/05/16 12/05/16 12/06/16 12/06/16 12/06/16 07:00 15:00 23:00 07:00 15:00 23:00 Intake Total 480 ml 720 ml 240 ml Output Total 400 ml 200 ml 250 ml Balance 80 ml 520 ml -10 ml Intake Oral 480 ml 720 ml 240 ml Output Urine Total 400 ml 200 ml 250 ml # Voids 1 # Bowel Movements 1 0 Physical Exam GENERAL: SKIN: Warm and dry. HEAD: Normocephalic. EYES: No scleral icterus. No injection or drainage. NECK: Supple, trachea midline. No JVD or lymphadenopathy. CARDIOVASCULAR: Regular rate and rhythm without murmurs, gallops, or rubs. RESPIRATORY: Breath sounds equal bilaterally. No accessory muscle use. GASTROINTESTINAL: Abdomen soft, non-tender, nondistended. MUSCULOSKELETAL: No cyanosis, or edema. BACK: Nontender without obvious deformity. No CVA tenderness. Laboratory Laboratory Tests Test 12/05/16 17:48 Total Creatine Kinase 418 U/L Creatine Kinase MB 7.3 NG/ML Creatine Kinase MB % 1.7 % Troponin I 15.90 NG/ML Assessment and Plan Problem List: (1) CAD (coronary artery disease) ICD Codes: I25.10 - Atherosclerotic heart disease of [place] coronary artery without angina pectoris (2) Alcoholism ICD Codes: F10.20 - Alcohol dependence, uncomplicated Status: Acute (3) STEMI (ST elevation myocardial infarction) ICD Codes: I21.3 - ST elevation (STEMI) myocardial infarction of unspecified site Status: Acute Assessment and Plan 1.) CAD - chest pain improving, ck and trop have peaked and are declining, suspect chest pain due to organized thrombus obstructing microvasculature and/ or inflammation, rec continue aspirin, effient, coreg, altace, coreg, d/w nurse Problem Qualifiers (1) STEMI (ST elevation myocardial infarction): Qualified Codes: I21.3 - ST elevation (STEMI) myocardial infarction of unspecified site Paul Connolly MD Dec 06, 2016 12:27
== END 2016-12-06 14:22 | disposition home health service (06) | DRG 249 ==
LOC: NEPE 14:36 → NEDA 15:24 → HCIN 18:01
PROVIDERS: ADMIT Family Medicine; ATTEND Family Medicine
PROC: 02703EZ Dilation of Coronary Artery, One Artery with Two Intraluminal Devices, Percutaneous Approach (ICD-10-PCS; principal; 2016-12-03)
PROC: 4A023N7 Measurement of Cardiac Sampling and Pressure, Left Heart, Percutaneous Approach (ICD-10-PCS; 2016-12-03)
PROC: B2111ZZ Fluoroscopy of Multiple Coronary Arteries using Low Osmolar Contrast (ICD-10-PCS; 2016-12-03)
PROC: B2151ZZ Fluoroscopy of Left Heart using Low Osmolar Contrast (ICD-10-PCS; 2016-12-03)
DX: I21.11 ST elevation (STEMI) myocardial infarction involving right coronary artery (principal); D75.1 Secondary polycythemia; I25.10 Atherosclerotic heart disease of native coronary artery without angina pectoris; F10.20 Alcohol dependence, uncomplicated; R73.9 Hyperglycemia, unspecified; E03.9 Hypothyroidism, unspecified; M54.2 Cervicalgia; M54.9 Dorsalgia, unspecified; M25.519 Pain in unspecified shoulder; G89.29 Other chronic pain; F32.9 Major depressive disorder, single episode, unspecified; F41.9 Anxiety disorder, unspecified; Z82.49 Family history of ischemic heart disease and other diseases of the circulatory system; Z92.21 Personal history of antineoplastic chemotherapy; Z98.1 Arthrodesis status; Z53.29 Procedure and treatment not carried out because of patient's decision for other reasons
CPT/HCPCS: 71010; 80048; 80053; 80061; 80076; 82435; 82550; 82552; 82565; 82947; 83690; 84132; 84295; 84484; 84520; 85002; 85025; 85027; 85347; 85610; 85730; 92928; 93005; 93306; 93458; C1725; C1769; C1876; C1887; C1893; J1644; J2405; J3010; J3246; Q9967